=== PATIENT | male | born 1965 | race Caucasian/White ===

== ENCOUNTER 2021-05-03 16:41 | Outpatient (CLI) | payer OTHER ==
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
[2021-05-03 17:43] VITALS: BP 137/88
== END 2021-05-03 16:42 | disposition home or self-care (01) ==
LOC: SC 16:41
PROVIDERS: ATTEND Nurse Practitioner Family
DX: G47.33 Obstructive sleep apnea (adult) (pediatric) (principal)
CPT/HCPCS: 99203; 99212

== ENCOUNTER 2021-05-09 10:20 | Outpatient (CLI) | payer OTHER ==
--- NOTE | 2021-05-09 11:05 | SLEEP CARE CONSULTATION ---
Information from patient questionnaire entered by Yane Myles. I have reviewed and concur with the information entered by Yane Myles. This document represents the service I personally performed and the decisions made by me, Zelalem Boles MD, [facility]. History of Present Illness Service Date and Time: 05/09/2021 1020 Previous diagnosis: Mild, Obstructive Sleep Apnea-Hypopnea Syndrome AHI: 13.1 (in 2010 ) Reason for follow up: other (discuss narcolepsy) Equipment type: CPAP Equipment obtained from: [employer] (no longer giving supplies) Mask style: Nasal Prior sleep studies: Yes Year and Where: 2010 - [facility] in [place] HPI additional information: HPI: Mr. Bravo returned today for an annual follow up of nasal CPAP therapy. He wants to know if he could have narcolepsy as well because he has been sleepy all his life. He says that his sleep apnea is mild according to a sleep study performed at [facility] in 2016. He uses CPAP mainly to stop his snore. The compliance/efficacy report shows the pressure setting of 7 10.5 cmH2O to be effective. His average usage is 6.4 hours a night. He does not usually sleep without his CPAP. He got his Respironics REM Star from [employer] but presently has no durable medical supplier. He says his insurance does not cover CPAP supplies. Recently, he acquired a ResMed AirSense 10 from his late father. He would like to start using it because his old Respironics CPAP is being recalled (he already registered it online). CPAP Compliance Data - Data Reviewed with Patient Average duration of nightly device use: 6 hr 24 min Compliance rate %: 81.7 (180 days) Current pressure setting (cmH2O): 7-10.5 Humidity settin Average residual AHI: 3.6 Average large leak: 3 sec Subjective Initial [place] Sleepiness Scale score: 21 (in 2020) Current Daisy Sleepiness Scale score: 23 Allergies and Home Medications Drug allergies reviewed: Yes Home medication list reviewed: Yes Review of Systems Review of systems same as previous: Yes Physical Exam Height: 5 ft 10 in Weight: 205 lb Body Mass Index: 29.4 BMI Classification: Overweight Impression and Plan IMPRESSION: 1. Obstructive Sleep Apnea-Hypopnea Syndrome, mild, with the patient continuing use his CPAP regularly. The patient continues to have excessive daytime sleepiness that is not affected by CPAP use. He denies other symptoms of narcolepsyhypnagogia, cataplexy, and sleep paralysis. One obvious reason for his persistent daytime sleeping is insufficient sleep syndrome. According to his CPAP, he averages only 6.4 hours of sleep a night. I instructed him to first average 8 hours. If he continues to feel sleepy, then modafinil can be prescribed. PLAN: 1. Bring his fathers ResMed CPAP in to have pressure set to his pressures. 2. Use CPAP 8 hours a night. 3. Purchase equipment online if his insurance does not cover CPAP supplies. 4. Return for follow up in a year or earlier if there is any problem. Counseling Topics: Weight control Follow up with [facility] in: 1 year Visit Type: In Office Time Spent with Patient (minutes): 15 Provider Statement: I spent 100% of the Face to Face Visit with the patient with greater than 50% spent counseling the patient and coordination of care.
== END 2021-05-09 10:21 | disposition home or self-care (01) ==
LOC: SC 10:20
PROVIDERS: ATTEND Internal Medicine Pulmonary Disease
DX: G47.33 Obstructive sleep apnea (adult) (pediatric) (principal)
CPT/HCPCS: 99212

== ENCOUNTER 2021-12-07 08:04 | Outpatient (CLI) | payer OTHER ==
[2021-12-07 12:31] LABS: ALBUMIN 4.2 g/dL (3.2-5.5); ALBUMIN/GLOBULIN RATIO 1.4 (1.0-2.2); ALKALINE PHOSPHATASE 53 IU/L (42-121); ALT ALANINE AMINOTRANSFERASE 30 IU/L (10-60); AST ASPARTATE AMINOTRANSFERASE 19 IU/L (10-42); BILIRUBIN,TOTAL 0.6 mg/dL (0.2-1.0); BUN - BLOOD UREA NITROGEN 14 mg/dL (6-20); CALCIUM 9.4 mg/dL (8.5-10.3); CARBON DIOXIDE - CO2 27 mmol/L (21-32); CHLORIDE 104 mmol/L (101-111); CHOL/HDL RATIO 4.5 (<5.0); CHOLESTEROL 195 mg/dL; CREATININE 1.1 mg/dL (0.6-1.2); GFR - MDRD 69 (>89); GLUCOSE 99 mg/dL (70-100); HDL CHOLESTEROL 43 mg/dL; LDL CHOLESTEROL,CALCULATED 125 mg/dL; LDL/HDL RATIO 2.9 (<3.6); POTASSIUM 3.9 mmol/L (3.5-5.0); SODIUM 141 mmol/L (135-145); TOTAL PROTEIN 7.1 g/dL (6.7-8.2); TRIGLYCERIDES 135 mg/dL; VLDL CHOLESTEROL 27 mg/dL
== END 2021-12-07 08:05 | disposition home or self-care (01) ==
LOC: LAB.N 08:04
PROVIDERS: ATTEND Student in an Organized Health Care Education/Training Program
DX: E78.2 Mixed hyperlipidemia (principal); Z12.5 Encounter for screening for malignant neoplasm of prostate
CPT/HCPCS: 36415; 80053; 80061; 83721; 84153